=== PATIENT | male | born 1995 | race Caucasian/White ===

== ENCOUNTER 2017-05-25 23:02 | Emergency (ER) | payer BC ==
[~2017-05-25] VITALS: Ht 172.7 cm; Wt 73.0 kg
[2017-05-25 23:05] VITALS: Ht 172.7 cm; Wt 73.0 kg
[2017-05-26] MEDS ORDERED: DIPHTH/TET/ACEL PERTUSS (ADULT) 0.5 ML VIAL ONE (00:27)
[2017-05-26] MEDS ORDERED: DIPHTH/TET/ACEL PERTUSS (ADULT) 0.5 ML VIAL IM* ONE (00:30)
--- NOTE | 2017-05-26 01:21 | ERD ---
ER Documentation Chief Complaint Chief Complaint NAIL PUNCTURE WOUND ON BOTTOM OF FOOT, PAIN 8/10 HPI This is a 21-year-old male who presents the emergency department today for a puncture wound on the left side of his leg that he got earlier with a nail. States he pulled out the nail. States he was at work when this happened. Denies any fevers or chills, previous trauma ROS All systems reviewed and are negative except as per history of present illness. Medications Home Meds Active Scripts Ciprofloxacin Hcl* (Ciprofloxacin Hcl*) 500 Mg Tablet, 500 MG PO BID for 7 Days , TAB Prov:JOHN PATEL PA-C 05/26/17 Ibuprofen* (Motrin*) 400 Mg Tab, 400 MG PO Q6, #30 TAB Prov:JOHN PATEL PA-C 05/26/17 Reported Medications [None] No Conflict Check 12/04/10 Allergies Allergies: Coded Allergies: No Known Allergies (Verified Allergy, Mild, 02/11/14) PMhx/Soc Medical and Surgical Hx: pt denies Medical Hx History of Surgery: No Anesthesia Reaction: No Hx Neurological Disorder: No Hx Respiratory Disorders: No Hx Cardiac Disorders: No Hx Psychiatric Problems: No Hx Miscellaneous Medical Probl: No Hx Alcohol Use: Yes Hx Substance Use: No Hx Tobacco Use: Yes Smoking Status: Never smoker Physical Exam Vitals Vital Signs Date Time Temp Pulse Resp B/P Pulse Ox O2 Delivery O2 Flow Rate FiO2 05/25/17 23:05 99.1 93 20 176/84 99 Physical Exam Const: NAD Head: Atraumatic Eyes: Normal Conjunctiva ENT: Normal External Ears, Nose and Mouth. Neck: Full range of motion..~ No meningismus. Resp: Clear to auscultation bilaterally Cardio: Regular rate and rhythm, no murmurs Skin: No petechiae or rashes MSk: Left tibia fibula with no obvious deformity. No effusion. No ecchymosis. Evidence of puncture wound with bleeding well controlled.. Plus. Distal neurovascularly intact. Full active range of motion of knee. Neur: Awake and alert Psych: Normal Mood and Affect Results 24 hrs Current Medications Medications (Trade) Dose Ordered Sig/Yara Route PRN Reason Start Time Stop Time Status Last Admin Dose Admin Diphtheria/ Tetanus/Acell Pertussis (Adacel) 0.5 ml STK-MED ONCE .ROUTE 05/26/17 00:27 05/26/17 00:28 DC Diphtheria/ Tetanus/Acell Pertussis (Adacel) 0.5 ml ONCE ONCE IM* 05/26/17 00:30 05/26/17 00:31 DC 05/26/17 00:43 DIAGNOSTIC IMAGING REPORT Patient: STELLA WONG : 1995 Age: 21 Sex: M MR #: [id number] DOS: 05/26/17 0000 Ordering MD: JOHN PATEL PA-C Location: [facility] Room/Bed: PROCEDURE: Left tibia and fibula x-ray CLINICAL INDICATION: Puncture wound with nail TECHNIQUE: AP, lateral views of the tibia and fibula were obtained. COMPARISON: None FINDINGS: There is normal mineralization. No acute fracture or dislocation is seen. No radiopaque foreign body is seen. There is no significant soft tissue swelling. IMPRESSION: Normal x-ray of the left tibia and fibula. RPTAT: HJES .Mateo Adan MD, MD Date Time Electronically viewed and signed by .Mateo Adan MD, MD on 05/26/2017 01:18 .S/ CC: JOHN PATEL PA-C Procedures/MDM This a 21-year-old male who presents the emergency department today for concerns of a puncture wound from a nail earlier today. Patient is afebrile and otherwise well-appearing. He has full active range of motion of his joint however given the trauma I did obtain images to rule out retained foreign body. The radiology report images of the left tibia and fibula are unremarkable. There is no evidence of foreign body, acute fracture dislocation. Patient declined pain medication here in the emergency department. He was not up-to- date on his tetanus and was therefore given a tetanus vaccine. The area was cleaned in the usual sterile fashion. Patient was given a prescription for Cipro, Motrin. He was instructed return in 48 hours for a wound check. Low suspicion for sepsis, cellulitis, deep space tracking infection, acute fracture dislocation. Patients blood pressure was elevated at 176/84. Patient denies any headache, dizziness, blurred vision, chest pain or shortness of breath and I do not feel he requires further evaluation at this time. Sister is with the patient was asking about his elevated blood pressure and I explained to them that he does need to follow-up with a primary care physician for further evaluation and management. Patient understood I have low suspicion for hypertensive emergency. At this time the patient is stable for discharge and outpatient management. Patient should follow up with their PCP in the next 1-2 days. They may return to the emergency department sooner for any persistent or worsening of symptoms. Patient understood and agreed with the plan. Departure Diagnosis: Primary Impression: Puncture wound Condition: Fair JOHN PATEL PA-C May 26, 2017 01:21
[2017-05-26] MEDS ORDERED: IBUP400T22 PO (01:22)
[2017-05-26] MEDS ORDERED: CIPR500T4 PO (01:23)
== END 2017-05-26 01:37 | disposition home or self-care (01) ==
LOC: FTE 23:02
DX: S91.332A Puncture wound without foreign body, left foot, initial encounter (principal); W45.0XXA Nail entering through skin, initial encounter; Y92.9 Unspecified place or not applicable; Z23 Encounter for immunization; Z87.891 Personal history of nicotine dependence
CPT/HCPCS: 73590; 90471; 90715; Z7502